=== PATIENT | male | born 1950 | race Caucasian/White ===

== ENCOUNTER 2017-01-04 07:16 | Day surgery (SDC) | payer OTHER, BC ==
[2017-01-02 10:07] VITALS: BMI 24.4
[2017-01-04] MEDS ORDERED: PROPOFOL 20 ML ONE ×2 (07:22)
[2017-01-04 09:29] VITALS: TEMP 98.5
[2017-01-04 09:38] VITALS: BP 124/60; PULSE 66
--- NOTE | 2017-01-06 14:17 | PATH ---
Surgical Pathology Report Patient Name: BART SARKAR [facility]. Rec. #: [id number] /Age/Gender: 1950 (Age: 66) / M Account: [id number] Location: [facility] AMBULATORY Taken: 01/04/2017 Received: 01/04/2017 Reported: 01/06/2017 Physicians: Charles Gabriel M.D. Specimen(s) Received A: BX DUODENUM B: BX ANTRUM C: SPLENIC FLEXURE BIOPSY Clinical History GERD, rule out colon cancer Rule out celiac disease, gastritis, colon polyp Final Diagnosis A. DUODENUM, BIOPSY: DUODENAL MUCOSA WITH NO PATHOLOGIC CHANGES. NO HISTOLOGIC EVIDENCE OF GLUTEN SENSITIVE ENTEROPATHY (CELIAC SPRUE) IDENTIFIED. B. STOMACH, ANTRUM, BIOPSY: FOCAL MILD CHRONIC GASTRITIS. IMMUNOSTAIN FOR H. PYLORI IS NEGATIVE. C. COLON, SPLENIC FLEXURE, BIOPSY: TUBULAR ADENOMA. Electronically Signed Bart Arteaga M.D. Gross Description A. Received in formalin, labeled "duodenum" are 2 villaseñor, irregular portions of soft tissue measuring 0.2-0.3 cm. in greatest dimension. The specimens are submitted in toto in one cassette. B. Received in formalin, labeled "antrum" are 3 villaseñor, irregular portions of soft tissue measuring 0.2-0.3 cm. in greatest dimension. The specimens are submitted in toto in one cassette. C. Received in formalin, labeled "splenic flexure" is a villaseñor, irregular portion of soft tissue measuring 0.2 cm. in greatest dimension. The specimen is submitted in toto in one cassette. [facility]/01/05/2017 [facility]/01/05/2017
== END 2017-01-04 09:40 | disposition home or self-care (01) ==
LOC: FASU-ENDO 07:16
PROVIDERS: ATTEND Internal Medicine Gastroenterology
PROC: 0DB68ZX Excision of Stomach, Via Natural or Artificial Opening Endoscopic, Diagnostic (ICD-10-PCS; 2017-01-04)
PROC: 0DBE8ZX Excision of Large Intestine, Via Natural or Artificial Opening Endoscopic, Diagnostic (ICD-10-PCS; principal; 2017-01-04 08:43)
PROC: 0DB98ZX Excision of Duodenum, Via Natural or Artificial Opening Endoscopic, Diagnostic (ICD-10-PCS; 2017-01-04 08:43)
DX: Z12.11 Encounter for screening for malignant neoplasm of colon (principal); K63.5 Polyp of colon; K29.50 Unspecified chronic gastritis without bleeding; R12 Heartburn
CPT/HCPCS: 88305-TC; 88342-TC

== ENCOUNTER 2023-01-02 07:57 | Day surgery (SDC) | payer OTHER, BC ==
[2022-12-29 10:26] VITALS: BMI 23.3
[2023-01-02 09:06] VITALS: TEMP 99
[2023-01-02 09:15] VITALS: PULSE 68
[2023-01-02 09:23] VITALS: BP 108/62; RESP 19
== END 2023-01-02 09:23 | disposition home or self-care (01) ==
LOC: FASU-ENDO 07:57
PROVIDERS: ATTEND Internal Medicine Gastroenterology
PROC: 0DJD8ZZ Inspection of Lower Intestinal Tract, Via Natural or Artificial Opening Endoscopic (ICD-10-PCS; principal; 2023-01-02 08:40)
DX: Z12.11 Encounter for screening for malignant neoplasm of colon (principal); Z86.010 Personal history of colon polyps